=== PATIENT | female | born 1960 | race Caucasian/White ===

== ENCOUNTER 2017-12-26 10:26 | Day surgery (SDC) | payer BC ==
[~2017-12-26 10:26] MED LIST: MIDAZOLAM INJ 2 MG/2 ML VIAL (J2250) As Ordered; fentaNYL 100 MCG/2 ML INJECTION (J3010) As Ordered
[2017-12-26] MEDS ORDERED: LR 1,000 ML IV (10:45)
[2017-12-26 11:18] LABS: BEDSIDE GLUCOSE 118 MG/DL (70-105)
[2017-12-26] MEDS: LIDOCAINE 3.5 % 1ML OPHTH TOPICAL GEL OU (11:18)
[2017-12-26] MEDS: POVIDONE-IODINE 5% OPHTH PREP SOL 30ML As Ordered (12:51)
[2017-12-26] MEDS ORDERED: LIDOCAINE 2% INJ 100 MG/5 ML SDV (FOR ANES.) As Ordered (13:03)
[2017-12-26] MEDS ORDERED: PROPOFOL 200 MG/20 ML VIAL As Ordered (13:03)
[2017-12-26] MEDS: LIDOCAINE 2% W/EPIN INJ 20ML **PRES FREE As Ordered (13:03)
[2017-12-26] MEDS: ERYTHROMYCIN OPHTH OINT As Ordered (13:32)
[2017-12-26] MEDS: TETRACAINE 0.5% OPHTH SOLN 4ML As Ordered (13:39)
== END 2017-12-26 14:43 | disposition home or self-care (01) ==
LOC: M SDC 10:26
DX: H02.831 Dermatochalasis of right upper eyelid (principal); H02.834 Dermatochalasis of left upper eyelid; I10 Essential (primary) hypertension; E78.5 Hyperlipidemia, unspecified; E11.9 Type 2 diabetes mellitus without complications; Z88.0 Allergy status to penicillin; Z79.899 Other long term (current) drug therapy
CPT/HCPCS: 15823

== ENCOUNTER → 2020-03-13 | Outpatient (REF) | payer BC ==
[~2020-03-13] MED LIST changes: +ENAL5TA PO; +FARX1TAB3 PO; +METF10004 PO; -MIDAZOLAM INJ 2 MG/2 ML VIAL (J2250) As Ordered; +PRAV40TA2 PO; -fentaNYL 100 MCG/2 ML INJECTION (J3010) As Ordered
[2020-03-13 17:56] LABS: CREATININE, URINE 55.3 MG/DL; MALB URINE SIEMENS 5.1 MG/L; MAU/CREAT RATIO 9.2 MCG/MG (0.0-30.0)
== END ==
LOC: M LAB REF 16:57
PROVIDERS: ATTEND Internal Medicine Endocrinology, Diabetes & Metabolism
DX: E11.9 Type 2 diabetes mellitus without complications (principal)